=== PATIENT | female | born 1950 | race Caucasian/White ===

== ENCOUNTER → 2016-05-12 | Outpatient (CLI) | payer BC, OTHER ==
[~2016-05-12] MED LIST: BIAXIN500 MG PO; MOTRIN600 MG PO; NAPROXEN500 MG PO; VICODIN,LORT1 TABLET PO
== END | disposition home or self-care (01) ==
LOC: PICC 15:00
DX: R78.81 Bacteremia (principal)
CPT/HCPCS: 76937; C1894

== ENCOUNTER 2016-05-15 18:48 | Emergency (ER) | payer BC, OTHER ==
[~2016-05-15] VITALS: Ht 167.6 cm; Wt 81.3 kg
[~2016-05-15 18:48] MED LIST changes: -NAPROXEN500 MG PO
[2016-05-15] MEDS ORDERED: NAPROXEN500 MG PO (21:19)
[2016-05-15 21:26] VITALS: BP 156/78
== END 2016-05-15 21:29 | disposition home or self-care (01) ==
LOC: EME 18:48
DX: I82.622 Acute embolism and thrombosis of deep veins of left upper extremity (principal); Z87.891 Personal history of nicotine dependence
CPT/HCPCS: 93971; 99281; 99283

== ENCOUNTER 2016-05-15 23:49 | Emergency (ER) | payer BC, OTHER ==
[~2016-05-15] VITALS: Ht 167.6 cm; Wt 81.3 kg
[~2016-05-15 23:49] MED LIST changes: +NAPROXEN500 MG PO
[2016-05-15 23:51] VITALS: BP 163/91
[2016-05-16 00:48] LABS: HEMATOCRIT 38.6 % (36.0-46.0); MCH 31.2 PG (29.0-34.0); MCHC 33.9 G/DL (30.0-36.0); MCV 91.9 FL (83-99); RBC DIS.WIDTH-CV 12.7 % (11.8-14.6); RBC DIS.WIDTH-SD 41.5 % (39-53); WHITE BLOOD COUNT 9.6 K/uL (4.1-10.2)
[2016-05-16 00:55] LABS: MEAN PLAT.VOLUME 8.9 uM^3 (9.5-12.4); PLATELET COUNT 493 K/uL (156-360)
[2016-05-16 00:58] LABS: CHLORIDE 108 mEq/L (99-109); POTASSIUM 4.1 mEq/L (3.7-5.4)
[2016-05-16 00:59] LABS: GLUCOSE 99 mg/dL (70-99); INTER. NORMALIZED RATIO 1.2; PTT 30.5 (25-32)
[2016-05-16 01:01] LABS: ANION GAP 10 MEQ/L (2-14)
[2016-05-16 01:02] LABS: SODIUM 142 mEq/L (136-147)
[2016-05-16 01:03] LABS: GFR ESTIMATE (CALCULATED) > 59 mL/min/
[2016-05-16 01:04] LABS: UREA NITROGEN (BUN) 11 mg/dL (9-23)
== END 2016-05-16 01:50 | disposition home or self-care (01) ==
LOC: EXP 23:49 → EME 23:49 → EXP 05-16 01:50
PROVIDERS: Physician Assistant
DX: I82.622 Acute embolism and thrombosis of deep veins of left upper extremity (principal)
CPT/HCPCS: 80048; 85027; 85610; 85730; 99281; 99283

== ENCOUNTER → 2017-04-30 | Outpatient (CLI) | payer BC, OTHER | END | disposition home or self-care (01) | LOC: NUC 09:59 | DX: R10.11 Right upper quadrant pain (principal) | CPT/HCPCS: 78227; A9537 ==